=== PATIENT | female | born 1935 | race Caucasian/White ===

== ENCOUNTER 2020-11-22 11:01 | Inpatient (IN) | payer MEDICARE, OTHER ==
[2020-11-22 12:18] LABS: EPI CELLS 6 /uL (0-25.1); HYALINE CASTS 1 /uL (0-3.1); PH,URINE 8.5 (5.0-8.0); URINE APPEARANCE CLEAR; URINE BACTERIA 7 /uL (0-1359); URINE BILIRUBIN NEGATIVE (NEGATIVE); URINE COLOR YELLOW; URINE GLUCOSE (UA) NEGATIVE (NEGATIVE); URINE KETONE NEGATIVE (NEGATIVE); URINE LEUK ESTERASE NEGATIVE (NEGATIVE); URINE NITRITE NEGATIVE (NEGATIVE); URINE PROTEIN 3+ (NEGATIVE); URINE RBC 240 /uL (0-23.9); URINE UROBILINOGEN 0.2 mg/dL (0.2-1.0); URINE WBC 6 /uL (0-25.8)
[2020-11-22 12:31] LABS: MAGNESIUM 1.9 mg/dL (1.8-2.4)
[2020-11-22 12:32] LABS: BLOOD UREA NITROGEN 21.3 mg/dL (7-18); CALCIUM 9.8 mg/dL (8.5-10.1)
[2020-11-22 12:33] LABS: ALBUMIN 3.8 g/dl (3.4-5.0)
[2020-11-22 12:36] LABS: CREATININE 0.5 mg/dL (0.55-1.3)
[2020-11-22 12:37] LABS: BILIRUBIN,TOTAL 0.4 mg/dL (0.2-1); TOT PROT 7.5 g/dl (6.4-8.2)
[2020-11-22 12:40] LABS: N-TERMINAL BNP 3214.9 pg/ml (5-450)
[2020-11-22 12:46] LABS: BASO % 0.7 % (0-2.0); HEMATOCRIT 36.1 % (32.4-45.2); LYMPH % 22.1 % (8-40); MCH 20.8 pg (25.7-33.7); MCHC 30.4 g/dl (32.0-36.0); MEAN CELL VOLUME 68.3 fl (80-96); MEAN PLT VOLUME 9.2 fl (7.5-11.1); MONO % 4.5 % (3.8-10.2); NEUT % 72.7 % (42.8-82.8); PLATELET COUNT 271 10^3/uL (134-434); RBC 5.28 M/mm3 (3.60-5.2); RDW 17.8 % (11.6-15.6)
[2020-11-22] MEDS ORDERED: SODIUM CHLORIDE 0.9% 500 ML INFUS.BAG IV ONE (12:54)
[2020-11-22] MEDS ORDERED: PIPERACILLIN/TAZOB 4.5 GM 4.5 GM in DEXTROSE 5%-WATER 100 ML IVPB ONE (13:03)
[2020-11-22] MEDS ORDERED: PIPERACILLIN/TAZOB 4.5 GM 4.5 GM/100 ML BAG IVPB ONE (13:24)
[2020-11-22 13:30] LABS: ANISOCYTOSIS 1+; MACROCYTOSIS 0; OVALOCYTE 2+; PLATELET ESTIMATE NORMAL; TARGET CELLS 1+; TOXIC GRANULATION 1+
[2020-11-22] MEDS ORDERED: ACETAMINOPHEN 325 MG TABLET (FP) PO PRN ×2 (15:46→17:53)
[2020-11-22] MEDS ORDERED: SODIUM CHLORIDE 1,000 ML IV SCH (16:00)
[2020-11-22] MEDS: PIPERACILLIN/TAZOB 4.5 GM 4.5 GM in DEXTROSE 5%-WATER 100 ML IVPB SCH (17:54)
[2020-11-22] MEDS: INSULIN SLIDING SCALE (NOVOLOG) 1 VIAL SQ SCH ×2 (18:11→22:21)
[2020-11-22] MEDS ORDERED: INSULIN (NOVOLOG) ASPART 100 UNITS/ML 10ML VIAL ONE (21:01)
[2020-11-22] MEDS ORDERED: APIXABAN 5 MG TABLET PO SCH (22:00)
[2020-11-22] MEDS ORDERED: APIXABAN 2.5 MG TABLET PO SCH (22:00)
[2020-11-22 23:12] VITALS: BMI 19.5
[2020-11-23] MEDS ORDERED: PIPERACILLIN/TAZOBACTAM 4.5 GM VIAL IVPB ONE ×2 (01:50→09:37)
[2020-11-23] MEDS ORDERED: DEXTROSE 5%-WATER 100 ML IVPB ONE ×2 (01:50→09:37)
[2020-11-23] MEDS: PIPERACILLIN/TAZOB 4.5 GM 4.5 GM in DEXTROSE 5%-WATER 100 ML IVPB SCH ×3 (01:54→21:12)
[2020-11-23] MEDS ORDERED: ACETAMINOPHEN 325 MG TABLET (FP) PO PRN (04:21)
[2020-11-23] MEDS ORDERED: SODIUM CHLORIDE 1,000 ML IV SCH (04:21)
[2020-11-23] MEDS ORDERED: INSULIN (LEVEMIR) 100 UNITS/ML UNITS SQ SCH (07:00)
[2020-11-23] MEDS: INSULIN (LEVEMIR) 100 UNITS/ML UNITS SQ SCH (07:37)
[2020-11-23] MEDS: INSULIN SLIDING SCALE (NOVOLOG) 1 VIAL SQ SCH ×4 (07:37→23:43)
[2020-11-23] MEDS ORDERED: ENOXAPARIN NA (PORCINE) 40 MG/0.4 ML DISP.SYRIN SQ SCH (10:00)
[2020-11-23] MEDS ORDERED: PIPERACILLIN/TAZOB 4.5 GM 4.5 GM in DEXTROSE 5%-WATER 100 ML IVPB SCH (10:00)
[2020-11-23] MEDS ORDERED: metoPROLOL SUCCINATE 25 MG TAB.SR.24H (FP) PO SCH (10:00)
[2020-11-23] MEDS ORDERED: APIXABAN 2.5 MG TABLET PO SCH (10:00)
[2020-11-23] MEDS: metoPROLOL SUCCINATE 25 MG TAB.SR.24H (FP) PO SCH (10:21)
[2020-11-23 11:12] LABS: BASO % 0.2 % (0-2.0); EOS % 0.2 % (0-4.5); HEMATOCRIT 27.9 % (32.4-45.2); HEMOGLOBIN 8.8 GM/dL (10.7-15.3); LYMPH % 25.1 % (8-40); MCH 21.5 pg (25.7-33.7); MCHC 31.7 g/dl (32.0-36.0); MEAN PLT VOLUME 8.8 fl (7.5-11.1); NEUT % 70.5 % (42.8-82.8); PLATELET COUNT 205 10^3/uL (134-434); RDW 17.8 % (11.6-15.6); WHITE BLOOD COUNT 23.8 K/mm3 (4.0-10.0)
[2020-11-23 11:37] LABS: BLOOD UREA NITROGEN 20.1 mg/dL (7-18); CALCIUM 9.3 mg/dL (8.5-10.1); MAGNESIUM 1.7 mg/dL (1.8-2.4)
[2020-11-23 11:40] LABS: CREATININE 0.8 mg/dL (0.55-1.3)
[2020-11-23 11:41] LABS: PHOSPHOROUS 1.8 mg/dL (2.5-4.9)
[2020-11-23 11:53] LABS: ANISOCYTOSIS 3+; MACROCYTOSIS 0; PLATELET ESTIMATE NORMAL
[2020-11-23] MEDS: PANTOPRAZOLE SODIUM 40 MG VIAL IVPUSH SCH (16:04)
[2020-11-23] MEDS ORDERED: SODIUM CHLORIDE 100 ML IVPB ONE (17:11)
[2020-11-23] MEDS ORDERED: AMPICILLIN NA/SULBACTAM NA 3 GM VIAL ONE (17:11)
[2020-11-23] MEDS: AMPICILLIN NA/SULBACTAM NA 3 GM in SODIUM CHLORIDE 100 ML IVPB SCH (17:40)
[2020-11-24] MEDS ORDERED: AMPICILLIN NA/SULBACTAM NA 3 GM VIAL ONE ×3 (02:24→16:44)
[2020-11-24] MEDS ORDERED: SODIUM CHLORIDE 100 ML IVPB ONE ×3 (02:24→16:44)
[2020-11-24] MEDS: AMPICILLIN NA/SULBACTAM NA 3 GM in SODIUM CHLORIDE 100 ML IVPB SCH ×3 (02:30→17:05)
[2020-11-24] MEDS: INSULIN SLIDING SCALE (NOVOLOG) 1 VIAL SQ SCH ×4 (07:24→21:33)
[2020-11-24] MEDS: INSULIN (LEVEMIR) 100 UNITS/ML UNITS SQ SCH (07:24)
[2020-11-24 07:44] LABS: CALCIUM 8.9 mg/dL (8.5-10.1)
[2020-11-24 07:45] LABS: BLOOD UREA NITROGEN 15.9 mg/dL (7-18)
[2020-11-24 07:46] LABS: BASO % 0.3 % (0-2.0); EOS % 0.6 % (0-4.5); HEMATOCRIT 25.1 % (32.4-45.2); HEMOGLOBIN 7.8 GM/dL (10.7-15.3); MCH 21.2 pg (25.7-33.7); MCHC 31.2 g/dl (32.0-36.0); MEAN PLT VOLUME 9.2 fl (7.5-11.1); MONO % 5.8 % (3.8-10.2); NEUT % 62.3 % (42.8-82.8); PLATELET COUNT 214 10^3/uL (134-434); RBC 3.69 M/mm3 (3.60-5.2); RDW 17.9 % (11.6-15.6); WHITE BLOOD COUNT 21.8 K/mm3 (4.0-10.0)
[2020-11-24 07:48] LABS: CREATININE 0.5 mg/dL (0.55-1.3)
[2020-11-24 07:49] LABS: BILIRUBIN,TOTAL 0.5 mg/dL (0.2-1); TOT PROT 5.7 g/dl (6.4-8.2)
[2020-11-24 08:45] LABS: ALBUMIN 2.6 g/dl (3.4-5.0)
[2020-11-24] MEDS: metoPROLOL SUCCINATE 25 MG TAB.SR.24H (FP) PO SCH (09:16)
[2020-11-24] MEDS: PANTOPRAZOLE SODIUM 40 MG VIAL IVPUSH SCH (09:16)
[2020-11-24 10:31] LABS: PLATELET ESTIMATE ADEQUATE
[2020-11-24] MEDS ORDERED: MAGNESIUM SULFATE IN WATER 2 GM/50 ML IVPB IVPB ONE (15:16)
[2020-11-24] MEDS: NAPH,MB-DB/K PH,MBDB POWDER PACKET PO SCH (21:33)
[2020-11-25] MEDS ORDERED: AMPICILLIN NA/SULBACTAM NA 3 GM VIAL ONE ×3 (01:05→16:48)
[2020-11-25] MEDS ORDERED: SODIUM CHLORIDE 100 ML IVPB ONE ×3 (01:06→16:49)
[2020-11-25] MEDS: AMPICILLIN NA/SULBACTAM NA 3 GM in SODIUM CHLORIDE 100 ML IVPB SCH ×3 (01:11→17:53)
[2020-11-25] MEDS: NAPH,MB-DB/K PH,MBDB POWDER PACKET PO SCH ×3 (06:02→21:11)
[2020-11-25] MEDS: INSULIN (LEVEMIR) 100 UNITS/ML UNITS SQ SCH (06:11)
[2020-11-25] MEDS: INSULIN SLIDING SCALE (NOVOLOG) 1 VIAL SQ SCH ×4 (06:12→21:02)
[2020-11-25] MEDS: metoPROLOL SUCCINATE 25 MG TAB.SR.24H (FP) PO SCH (09:23)
[2020-11-25 09:26] LABS: BASO % 0.2 % (0-2.0); HEMOGLOBIN 8.1 GM/dL (10.7-15.3); LYMPH % 24.8 % (8-40); MCHC 31.2 g/dl (32.0-36.0); MEAN CELL VOLUME 67.3 fl (80-96); MEAN PLT VOLUME 8.9 fl (7.5-11.1); MONO % 5.6 % (3.8-10.2); NEUT % 68.4 % (42.8-82.8); PLATELET COUNT 226 10^3/uL (134-434); RBC 3.86 M/mm3 (3.60-5.2); RDW 17.6 % (11.6-15.6); WHITE BLOOD COUNT 21.1 K/mm3 (4.0-10.0)
[2020-11-25 09:38] LABS: ALBUMIN 2.5 g/dl (3.4-5.0); CALCIUM 8.5 mg/dL (8.5-10.1)
[2020-11-25 09:39] LABS: BLOOD UREA NITROGEN 16.6 mg/dL (7-18)
[2020-11-25 09:42] LABS: CREATININE 0.7 mg/dL (0.55-1.3)
[2020-11-25 09:43] LABS: BILIRUBIN,TOTAL 0.7 mg/dL (0.2-1)
[2020-11-25 10:08] LABS: ANISOCYTOSIS 2+; MACROCYTOSIS 0; PLATELET ESTIMATE NORMAL
[2020-11-25 12:20] LABS: PH,URINE 8.5 (5.0-8.0); URINE APPEARANCE Clear; URINE BILIRUBIN Negative (NEGATIVE); URINE COLOR Yellow; URINE GLUCOSE (UA) Trace (NEGATIVE); URINE KETONE Negative (NEGATIVE); URINE LEUK ESTERASE Negative (NEGATIVE); URINE NITRITE Negative (NEGATIVE); URINE PROTEIN 2+ (NEGATIVE); URINE UROBILINOGEN 0.2 mg/dL (0.2-1.0)
[2020-11-25] MEDS: APIXABAN 5 MG TABLET PO SCH (21:11)
[2020-11-26] MEDS ORDERED: AMPICILLIN NA/SULBACTAM NA 3 GM VIAL ONE ×3 (01:03→17:46)
[2020-11-26] MEDS ORDERED: SODIUM CHLORIDE 100 ML IVPB ONE ×3 (01:03→17:46)
[2020-11-26] MEDS: AMPICILLIN NA/SULBACTAM NA 3 GM in SODIUM CHLORIDE 100 ML IVPB SCH ×3 (01:36→18:19)
[2020-11-26] MEDS: NAPH,MB-DB/K PH,MBDB POWDER PACKET PO SCH ×2 (06:11→15:51)
[2020-11-26] MEDS: INSULIN (LEVEMIR) 100 UNITS/ML UNITS SQ SCH (06:12)
[2020-11-26] MEDS: INSULIN SLIDING SCALE (NOVOLOG) 1 VIAL SQ SCH ×4 (06:13→21:52)
[2020-11-26 07:27] LABS: HEMATOCRIT 26.5 % (32.4-45.2); HEMOGLOBIN 8.5 GM/dL (10.7-15.3); MCH 21.4 pg (25.7-33.7); MCHC 31.9 g/dl (32.0-36.0); MEAN PLT VOLUME 8.5 fl (7.5-11.1); PLATELET COUNT 264 10^3/uL (134-434); RBC 3.96 M/mm3 (3.60-5.2); RDW 17.5 % (11.6-15.6); WHITE BLOOD COUNT 20.7 K/mm3 (4.0-10.0)
[2020-11-26 07:57] LABS: ALBUMIN 2.5 g/dl (3.4-5.0); BLOOD UREA NITROGEN 15.9 mg/dL (7-18); CALCIUM 8.5 mg/dL (8.5-10.1); MAGNESIUM 1.9 mg/dL (1.8-2.4)
[2020-11-26 08:00] LABS: PHOSPHOROUS 4.4 mg/dL (2.5-4.9)
[2020-11-26 08:01] LABS: BILIRUBIN,TOTAL 1.1 mg/dL (0.2-1); TOT PROT 6.3 g/dl (6.4-8.2)
[2020-11-26 08:03] LABS: CREATININE 0.4 mg/dL (0.55-1.3)
[2020-11-26] MEDS ORDERED: IRON SUCROSE INJECTION 200 MG in SODIUM CHLORIDE 90 ML IVPB ONE (10:00)
[2020-11-26] MEDS: metoPROLOL SUCCINATE 25 MG TAB.SR.24H (FP) PO SCH (10:33)
[2020-11-26] MEDS: PANTOPRAZOLE 40 MG TABLET PO SCH (10:33)
[2020-11-26] MEDS ORDERED: INSULIN (NOVOLOG) ASPART 100 UNITS/ML 10ML VIAL ONE (18:27)
[2020-11-26] MEDS: POLYETHYLENE GLYCOL (HEALTHYLAX) 3350 17 GM PACKET PO SCH (21:52)
[2020-11-27] MEDS ORDERED: SODIUM CHLORIDE 100 ML IVPB ONE ×3 (00:15→16:19)
[2020-11-27] MEDS ORDERED: AMPICILLIN NA/SULBACTAM NA 3 GM VIAL ONE ×3 (00:15→16:19)
[2020-11-27] MEDS: AMPICILLIN NA/SULBACTAM NA 3 GM in SODIUM CHLORIDE 100 ML IVPB SCH ×3 (01:14→17:03)
[2020-11-27] MEDS: INSULIN SLIDING SCALE (NOVOLOG) 1 VIAL SQ SCH ×4 (06:00→21:18)
[2020-11-27] MEDS: INSULIN (LEVEMIR) 100 UNITS/ML UNITS SQ SCH (06:29)
[2020-11-27] MEDS: POLYETHYLENE GLYCOL (HEALTHYLAX) 3350 17 GM PACKET PO SCH ×4 (06:43→21:08)
[2020-11-27 07:31] LABS: BASO % 0.3 % (0-2.0); EOS % 2.4 % (0-4.5); HEMATOCRIT 25.6 % (32.4-45.2); HEMOGLOBIN 8.2 GM/dL (10.7-15.3); LYMPH % 41.1 % (8-40); MCH 21.2 pg (25.7-33.7); MCHC 31.8 g/dl (32.0-36.0); MEAN CELL VOLUME 66.7 fl (80-96); MEAN PLT VOLUME 8.3 fl (7.5-11.1); MONO % 8.2 % (3.8-10.2); PLATELET COUNT 249 10^3/uL (134-434); RBC 3.84 M/mm3 (3.60-5.2); RDW 17.5 % (11.6-15.6); WHITE BLOOD COUNT 22.7 K/mm3 (4.0-10.0)
[2020-11-27 08:00] LABS: ALBUMIN 2.3 g/dl (3.4-5.0); BLOOD UREA NITROGEN 14.7 mg/dL (7-18); CALCIUM 8.4 mg/dL (8.5-10.1); MAGNESIUM 1.9 mg/dL (1.8-2.4)
[2020-11-27 08:03] LABS: CREATININE 0.4 mg/dL (0.55-1.3); PHOSPHOROUS 5.4 mg/dL (2.5-4.9)
[2020-11-27 08:04] LABS: BILIRUBIN,TOTAL 0.4 mg/dL (0.2-1); TOT PROT 5.8 g/dl (6.4-8.2)
[2020-11-27] MEDS ORDERED: PT OWN MED DRAWER 7, Y5N ONE ×3 (08:49→10:46)
[2020-11-27 09:30] LABS: HELMET CELLS 0; HOWELL-JOLLY BODIES 0; MACROCYTOSIS 0; OVALOCYTE 0; PLATELET ESTIMATE NORMAL; SICKELED CELLS 0; TARGET CELLS 0; TEAR DROP CELLS 0; TOXIC GRANULATION 0
[2020-11-27 09:38] LABS: ANISOCYTOSIS 3+; ROULEAU 2+
[2020-11-27] MEDS: PANTOPRAZOLE 40 MG TABLET PO SCH (10:31)
[2020-11-27] MEDS: dilTIAZem HCL 30 MG TABLET PO SCH ×4 (10:35→23:31)
[2020-11-27] MEDS: METOPROLOL TARTRATE 25 MG TABLET (FP) PO SCH ×2 (10:35→21:06)
[2020-11-27] MEDS: metoPROLOL SUCCINATE 25 MG TAB.SR.24H (FP) PO SCH (11:25)
[2020-11-27] MEDS: IRON SUCROSE INJECTION 200 MG in SODIUM CHLORIDE 90 ML IVPB SCH (11:27)
[2020-11-27] MEDS ORDERED: dilTIAZem HCL 30 MG TABLET PO SCH (12:00)
[2020-11-27] MEDS: LOSARTAN POTASSIUM 25 MG TABLET PO SCH (13:20)
[2020-11-27] MEDS: APIXABAN 5 MG TABLET PO SCH ×2 (14:57→21:05)
[2020-11-27] MEDS ORDERED: INSULIN (NOVOLOG) ASPART 100 UNITS/ML 10ML VIAL ONE (16:42)
[2020-11-28] MEDS ORDERED: AMPICILLIN NA/SULBACTAM NA 3 GM VIAL ONE ×3 (02:54→17:14)
[2020-11-28] MEDS: AMPICILLIN NA/SULBACTAM NA 3 GM in SODIUM CHLORIDE 100 ML IVPB SCH ×3 (03:14→18:11)
[2020-11-28] MEDS: dilTIAZem HCL 30 MG TABLET PO SCH ×3 (06:38→18:11)
[2020-11-28] MEDS: POLYETHYLENE GLYCOL (HEALTHYLAX) 3350 17 GM PACKET PO SCH ×3 (06:39→21:16)
[2020-11-28] MEDS: INSULIN SLIDING SCALE (NOVOLOG) 1 VIAL SQ SCH ×4 (06:40→21:27)
[2020-11-28] MEDS: INSULIN (LEVEMIR) 100 UNITS/ML UNITS SQ SCH (06:57)
[2020-11-28 07:27] LABS: BASO % 0.3 % (0-2.0); EOS % 2.5 % (0-4.5); HEMATOCRIT 23.9 % (32.4-45.2); HEMOGLOBIN 7.6 GM/dL (10.7-15.3); LYMPH % 38.3 % (8-40); MCH 21.3 pg (25.7-33.7); MCHC 31.9 g/dl (32.0-36.0); MEAN CELL VOLUME 66.8 fl (80-96); MEAN PLT VOLUME 8.2 fl (7.5-11.1); MONO % 7.4 % (3.8-10.2); NEUT % 51.5 % (42.8-82.8); PLATELET COUNT 296 10^3/uL (134-434); RBC 3.58 M/mm3 (3.60-5.2); RDW 17.1 % (11.6-15.6); WHITE BLOOD COUNT 25.1 K/mm3 (4.0-10.0)
[2020-11-28 07:46] LABS: CALCIUM 8.8 mg/dL (8.5-10.1)
[2020-11-28 07:47] LABS: ALBUMIN 2.4 g/dl (3.4-5.0); BLOOD UREA NITROGEN 17.9 mg/dL (7-18); MAGNESIUM 2.1 mg/dL (1.8-2.4)
[2020-11-28 07:50] LABS: CREATININE 0.4 mg/dL (0.55-1.3); PHOSPHOROUS 5.3 mg/dL (2.5-4.9)
[2020-11-28 07:52] LABS: BILIRUBIN,TOTAL 0.3 mg/dL (0.2-1); TOT PROT 6.2 g/dl (6.4-8.2)
[2020-11-28] MEDS ORDERED: SODIUM CHLORIDE 100 ML IVPB ONE ×2 (09:25→17:14)
[2020-11-28 09:46] LABS: ANISOCYTOSIS 2+; MACROCYTOSIS 1+; PLATELET ESTIMATE NORMAL; ROULEAU 1+
[2020-11-28] MEDS: METOPROLOL TARTRATE 25 MG TABLET (FP) PO SCH ×2 (10:27→21:16)
[2020-11-28] MEDS: LOSARTAN POTASSIUM 25 MG TABLET PO SCH (10:28)
[2020-11-28] MEDS: PANTOPRAZOLE 40 MG TABLET PO SCH (10:28)
[2020-11-28] MEDS: APIXABAN 5 MG TABLET PO SCH ×2 (10:28→21:16)
[2020-11-28] MEDS: IRON SUCROSE INJECTION 200 MG in SODIUM CHLORIDE 90 ML IVPB SCH (10:29)
[2020-11-29] MEDS ORDERED: AMPICILLIN NA/SULBACTAM NA 3 GM VIAL ONE ×2 (02:48→09:40)
[2020-11-29] MEDS ORDERED: SODIUM CHLORIDE 100 ML IVPB ONE ×2 (02:48→09:40)
[2020-11-29] MEDS: AMPICILLIN NA/SULBACTAM NA 3 GM in SODIUM CHLORIDE 100 ML IVPB SCH ×2 (02:56→09:50)
[2020-11-29] MEDS: dilTIAZem HCL 30 MG TABLET PO SCH ×3 (02:58→13:59)
[2020-11-29] MEDS: INSULIN SLIDING SCALE (NOVOLOG) 1 VIAL SQ SCH ×2 (06:22→11:39)
[2020-11-29] MEDS: POLYETHYLENE GLYCOL (HEALTHYLAX) 3350 17 GM PACKET PO SCH ×2 (06:55→13:59)
[2020-11-29] MEDS: INSULIN (LEVEMIR) 100 UNITS/ML UNITS SQ SCH (06:55)
[2020-11-29 08:09] LABS: BASO % 0.6 % (0-2.0); HEMATOCRIT 32.8 % (32.4-45.2); HEMOGLOBIN 10.2 GM/dL (10.7-15.3); LYMPH % 39.4 % (8-40); MCH 22.1 pg (25.7-33.7); MCHC 30.9 g/dl (32.0-36.0); MEAN CELL VOLUME 71.5 fl (80-96); MEAN PLT VOLUME 8.5 fl (7.5-11.1); MONO % 5.7 % (3.8-10.2); NEUT % 51.3 % (42.8-82.8); PLATELET COUNT 324 10^3/uL (134-434); RBC 4.59 M/mm3 (3.60-5.2); RDW 20.5 % (11.6-15.6); WHITE BLOOD COUNT 26.5 K/mm3 (4.0-10.0)
[2020-11-29 08:38] LABS: ALBUMIN 2.6 g/dl (3.4-5.0); CALCIUM 9.2 mg/dL (8.5-10.1)
[2020-11-29 08:39] LABS: MAGNESIUM 2.1 mg/dL (1.8-2.4)
[2020-11-29 08:42] LABS: CREATININE 0.6 mg/dL (0.55-1.3); PHOSPHOROUS 5.7 mg/dL (2.5-4.9)
[2020-11-29 08:43] LABS: BILIRUBIN,TOTAL 0.5 mg/dL (0.2-1); TOT PROT 6.4 g/dl (6.4-8.2)
[2020-11-29] MEDS: METOPROLOL TARTRATE 25 MG TABLET (FP) PO SCH (09:50)
[2020-11-29] MEDS: APIXABAN 5 MG TABLET PO SCH (09:50)
[2020-11-29] MEDS: PANTOPRAZOLE 40 MG TABLET PO SCH (09:51)
[2020-11-29] MEDS: LOSARTAN POTASSIUM 25 MG TABLET PO SCH (09:51)
[2020-11-29] MEDS ORDERED: INSULIN (NOVOLOG) ASPART 100 UNITS/ML 10ML VIAL ONE (11:37)
[2020-11-29 15:13] VITALS: BP 130/65; PULSE 87; TEMP 97.6
== END 2020-11-29 15:57 | disposition home or self-care (01) | DRG 871 ==
LOC: JER 11:01 → JERBED 13:54 → J6S 18:35 → J4W 11-23 05:30
PROVIDERS: ADMIT Student in an Organized Health Care Education/Training Program; ATTEND Internal Medicine
PROC: 30233N1 Transfusion of Nonautologous Red Blood Cells into Peripheral Vein, Percutaneous Approach (ICD-10-PCS; principal; 2020-11-28)
DX: A41.9 Sepsis, unspecified organism (principal); J69.0 Pneumonitis due to inhalation of food and vomit; I21.4 Non-ST elevation (NSTEMI) myocardial infarction; J96.01 Acute respiratory failure with hypoxia; I24.8 Other forms of acute ischemic heart disease; I48.19 Other persistent atrial fibrillation; E87.1 Hypo-osmolality and hyponatremia; R65.20 Severe sepsis without septic shock; D50.9 Iron deficiency anemia, unspecified; K59.00 Constipation, unspecified; D50.0 Iron deficiency anemia secondary to blood loss (chronic); G30.9 Alzheimer's disease, unspecified; F02.80 Dementia in other diseases classified elsewhere, unspecified severity, without behavioral disturbance, psychotic disturbance, mood disturbance, and anxiety; E11.9 Type 2 diabetes mellitus without complications; I25.10 Atherosclerotic heart disease of native coronary artery without angina pectoris; R31.9 Hematuria, unspecified; D72.829 Elevated white blood cell count, unspecified
CPT/HCPCS: 36415; 36430; 36511; 71045-TC-FY; 80048; 80053; 81003; 82272; 82550; 82570; 82728; 82962; 83540; 83550; 83735; 83880; 84100; 84156; 84300; 84484; 85025; 85027; 86738; 86850; 86900; 86901; 86922; 87040; 87899; 93005; 93010; 93306-TC; 94761; 97161-GP; 99285-25; C9803; J1756; P9038; P9058; U0003; U0005

== ENCOUNTER 2021-06-10 19:43 | Inpatient (IN) | payer MEDICARE, OTHER ==
[2021-06-10] MEDS ORDERED: SODIUM CHLORIDE 0.9% 500 ML INFUS.BAG IV ONE ×2 (20:31→23:52)
[2021-06-10 22:24] LABS: BASO % 0.9 % (0-2.0); HEMATOCRIT 33.1 % (32.4-45.2); HEMOGLOBIN 10.7 GM/dL (10.7-15.3); LYMPH % 29.5 % (8-40); MCH 23.9 pg (25.7-33.7); MCHC 32.5 g/dl (32.0-36.0); MEAN CELL VOLUME 73.5 fl (80-96); MONO % 6.8 % (3.8-10.2); NEUT % 62.8 % (42.8-82.8); RDW 14.9 % (11.6-15.6); WHITE BLOOD COUNT 17.7 K/mm3 (4.0-10.0)
[2021-06-10 22:29] LABS: BLOOD UREA NITROGEN 34.9 mg/dL (7-18); CALCIUM 9.9 mg/dL (8.5-10.1); MAGNESIUM 1.8 mg/dL (1.8-2.4)
[2021-06-10 22:31] LABS: PHOSPHOROUS 3.1 mg/dL (2.5-4.9)
[2021-06-10 22:32] LABS: CREATININE 0.9 mg/dL (0.55-1.3)
[2021-06-10 22:34] LABS: BILIRUBIN,TOTAL 0.4 mg/dL (0.2-1); TOT PROT 7.4 g/dl (6.4-8.2)
[2021-06-10 22:40] LABS: LACTIC ACID 3.9 mmol/L (0.4-2.0)
[2021-06-10] MEDS ORDERED: PIPERACILLIN/TAZOB 4.5 GM 4.5 GM in DEXTROSE 5%-WATER 100 ML IVPB ONE (22:46)
[2021-06-10 22:54] LABS: MEAN PLT VOLUME 9.3 fl (7.5-11.1); PLATELET COUNT 194 10^3/uL (134-434)
[2021-06-10 23:02] LABS: INR 1.79 (0.83-1.09); PROTHROMBIN TIME (PATIENT) 20.7 SEC (9.7-13.0)
[2021-06-10 23:05] LABS: ACTIVATED PTT 35.3 SECONDS (25.2-36.5)
[2021-06-10] MEDS ORDERED: PIPERACILLIN/TAZOB 4.5 GM 4.5 GM/100 ML BAG IVPB ONE (23:05)
[2021-06-10 23:29] LABS: EPI CELLS 32 /uL (0-25.1); HYALINE CASTS 37 /uL (0-3.1); PH,URINE 7.5 (5.0-8.0); URINE APPEARANCE TURBID; URINE BACTERIA >9,000 /uL (0-1359); URINE BILIRUBIN NEGATIVE (NEGATIVE); URINE COLOR DK YELLOW; URINE GLUCOSE (UA) NEGATIVE (NEGATIVE); URINE KETONE TRACE (NEGATIVE); URINE LEUK ESTERASE 3+ (NEGATIVE); URINE NITRITE NEGATIVE (NEGATIVE); URINE PROTEIN 3+ (NEGATIVE); URINE WBC 20374 /uL (0-25.8)
[2021-06-10] MEDS ORDERED: ACETAMINOPHEN 1000 MG/100 ML BAG IVPB ONE (23:54)
[2021-06-11] MEDS ORDERED: ACETAMINOPHEN INJECTION 100 ML IVPB ONE (00:04)
[2021-06-11 01:28] LABS: URINE RBC 1305 /uL (0-23.9)
[2021-06-11 01:29] LABS: YEAST NONE SEEN (NEGATIVE)
[2021-06-11 02:52] LABS: LACTIC ACID 2.6 mmol/L (0.4-2.0)
[2021-06-11] MEDS ORDERED: SODIUM CHLORIDE 1,000 ML IV SCH (04:00)
[2021-06-11] MEDS ORDERED: dilTIAZem HCL 30 MG TABLET ONE (05:21)
[2021-06-11] MEDS: dilTIAZem HCL 30 MG TABLET PO SCH ×3 (05:59→18:20)
[2021-06-11] MEDS: INSULIN SLIDING SCALE (NOVOLOG) 1 VIAL SQ SCH ×3 (07:00→17:34)
[2021-06-11 07:12] LABS: HEMATOCRIT 33.5 % (32.4-45.2); HEMOGLOBIN 10.3 GM/dL (10.7-15.3); MCH 23.1 pg (25.7-33.7); MCHC 30.7 g/dl (32.0-36.0); MEAN CELL VOLUME 75.1 fl (80-96); MEAN PLT VOLUME 9.3 fl (7.5-11.1); PLATELET COUNT 149 10^3/uL (134-434); RBC 4.46 M/mm3 (3.60-5.2); RDW 14.9 % (11.6-15.6); WHITE BLOOD COUNT 11.7 K/mm3 (4.0-10.0)
[2021-06-11 07:41] LABS: ALBUMIN 2.7 g/dl (3.4-5.0); CALCIUM 8.9 mg/dL (8.5-10.1)
[2021-06-11 07:42] LABS: BLOOD UREA NITROGEN 30.1 mg/dL (7-18); MAGNESIUM 1.7 mg/dL (1.8-2.4)
[2021-06-11 07:44] LABS: CREATININE 0.6 mg/dL (0.55-1.3)
[2021-06-11 07:45] LABS: CHOLESTEROL 105 mg/dL (50-200); PHOSPHOROUS 3.1 mg/dL (2.5-4.9); TOT PROT 6.4 g/dl (6.4-8.2); TRIGLYCERIDES 202 mg/dL (0-150)
[2021-06-11 07:46] LABS: BILIRUBIN,TOTAL 0.3 mg/dL (0.2-1); HDL CHOLESTEROL 27 mg/dL (40-60)
[2021-06-11 07:48] LABS: LDL CHOLESTEROL (ONLY SJRH) 48 mg/dL (5-100)
[2021-06-11] MEDS ORDERED: INSULIN (LEVEMIR) 100 UNITS/ML UNITS SQ SCH (10:00)
[2021-06-11] MEDS ORDERED: AZITHROMYCIN IVPB 500 MG/250 ML BAG IVPB SCH (10:00)
[2021-06-11] MEDS ORDERED: METOPROLOL TARTRATE 25 MG TABLET (FP) ONE (10:30)
[2021-06-11] MEDS ORDERED: APIXABAN 5 MG TABLET ONE (10:30)
[2021-06-11] MEDS ORDERED: PANTOPRAZOLE 40 MG TABLET ONE (10:30)
[2021-06-11] MEDS ORDERED: CEFTRIAXONE 1 GM/50 ML BAG ONE (10:31)
[2021-06-11] MEDS: APIXABAN 5 MG TABLET PO SCH ×2 (10:52→22:13)
[2021-06-11] MEDS: METOPROLOL TARTRATE 25 MG TABLET (FP) PO SCH ×2 (10:52→22:13)
[2021-06-11] MEDS: LOSARTAN POTASSIUM 25 MG TABLET PO SCH (10:52)
[2021-06-11] MEDS: CEFTRIAXONE 1 GM in DEXTROSE 5%-WATER - 50 ML IVPB SCH (10:52)
[2021-06-11] MEDS: PANTOPRAZOLE 40 MG TABLET PO SCH (10:52)
[2021-06-11] MEDS ORDERED: AZITHROMYCIN IVPB 500 MG/250 ML BAG IVPB ONE (11:10)
[2021-06-11 14:17] VITALS: BMI 19.5
[2021-06-11] MEDS ORDERED: REMDESIVIR 200 MG in SODIUM CHLORIDE 250 ML IVPB ONE (16:15)
[2021-06-12] MEDS: dilTIAZem HCL 30 MG TABLET PO SCH ×4 (00:48→17:20)
[2021-06-12] MEDS: INSULIN SLIDING SCALE (NOVOLOG) 1 VIAL SQ SCH ×3 (06:05→17:35)
[2021-06-12] MEDS ORDERED: cefTRIAXone SODIUM 1 GM VIAL ONE (09:18)
[2021-06-12] MEDS ORDERED: DEXTROSE 5%-WATER - 50 ML IVPB ONE (09:18)
[2021-06-12] MEDS: APIXABAN 5 MG TABLET PO SCH ×2 (09:55→22:43)
[2021-06-12] MEDS: METOPROLOL TARTRATE 25 MG TABLET (FP) PO SCH ×2 (09:55→22:43)
[2021-06-12] MEDS: LOSARTAN POTASSIUM 25 MG TABLET PO SCH (09:56)
[2021-06-12] MEDS: CEFTRIAXONE 1 GM in DEXTROSE 5%-WATER - 50 ML IVPB SCH (09:56)
[2021-06-12] MEDS: PANTOPRAZOLE 40 MG TABLET PO SCH (09:56)
[2021-06-12] MEDS ORDERED: CEFEPIME HCL 1 GM VIAL (RESTRICTED TO ID) ONE (17:18)
[2021-06-12] MEDS ORDERED: DEXTROSE 5%-WATER 100 ML IVPB ONE (17:18)
[2021-06-12] MEDS: CEFEPIME 1 GM in DEXTROSE 5%-WATER 1 GM/100 ML BAG IVPB SCH (17:20)
[2021-06-12] MEDS: ACETAMINOPHEN 325 MG TABLET (FP) PO PRN (21:00)
[2021-06-13] MEDS ORDERED: DEXTROSE 5%-WATER 100 ML IVPB ONE ×3 (01:01→16:50)
[2021-06-13] MEDS ORDERED: CEFEPIME HCL 1 GM VIAL (RESTRICTED TO ID) ONE ×3 (01:01→16:50)
[2021-06-13] MEDS: CEFEPIME 1 GM in DEXTROSE 5%-WATER 1 GM/100 ML BAG IVPB SCH ×3 (01:49→18:44)
[2021-06-13] MEDS: dilTIAZem HCL 30 MG TABLET PO SCH ×4 (05:15→18:44)
[2021-06-13] MEDS: INSULIN SLIDING SCALE (NOVOLOG) 1 VIAL SQ SCH ×3 (07:06→17:08)
[2021-06-13 09:51] LABS: BASO % 0.1 % (0-2.0); EOS % 0.7 % (0-4.5); HEMATOCRIT 32.8 % (32.4-45.2); HEMOGLOBIN 10.3 GM/dL (10.7-15.3); LYMPH % 46.8 % (8-40); MCH 23.1 pg (25.7-33.7); MCHC 31.4 g/dl (32.0-36.0); MEAN CELL VOLUME 73.5 fl (80-96); MEAN PLT VOLUME 9.1 fl (7.5-11.1); MONO % 5.9 % (3.8-10.2); NEUT % 46.5 % (42.8-82.8); PLATELET COUNT 187 10^3/uL (134-434); RBC 4.46 M/mm3 (3.60-5.2); RDW 14.5 % (11.6-15.6); WHITE BLOOD COUNT 12.1 K/mm3 (4.0-10.0)
[2021-06-13] MEDS: LOSARTAN POTASSIUM 25 MG TABLET PO SCH (09:59)
[2021-06-13] MEDS: APIXABAN 5 MG TABLET PO SCH (09:59)
[2021-06-13] MEDS: PANTOPRAZOLE 40 MG TABLET PO SCH (09:59)
[2021-06-13] MEDS: METOPROLOL TARTRATE 25 MG TABLET (FP) PO SCH ×2 (10:00→21:15)
[2021-06-13 10:18] LABS: CALCIUM 8.3 mg/dL (8.5-10.1)
[2021-06-13 10:19] LABS: ALBUMIN 2.5 g/dl (3.4-5.0); BLOOD UREA NITROGEN 18.9 mg/dL (7-18); MAGNESIUM 1.8 mg/dL (1.8-2.4)
[2021-06-13 10:22] LABS: CREATININE 0.5 mg/dL (0.55-1.3)
[2021-06-13 10:24] LABS: BILIRUBIN,TOTAL 0.3 mg/dL (0.2-1); TOT PROT 6.2 g/dl (6.4-8.2)
[2021-06-13] MEDS: REMDESIVIR 100 MG in SODIUM CHLORIDE 250 ML IVPB SCH (17:03)
[2021-06-13] MEDS: KCL 10 MEQ IVPB 10 MEQ/100 ML INFUS.BAG IVPB SCH ×2 (21:15→22:12)
[2021-06-13] MEDS: APIXABAN 2.5 MG TABLET PO SCH (21:15)
[2021-06-14] MEDS: dilTIAZem HCL 30 MG TABLET PO SCH ×4 (00:58→17:34)
[2021-06-14] MEDS ORDERED: DEXTROSE 5%-WATER 100 ML IVPB ONE ×3 (02:53→17:05)
[2021-06-14] MEDS ORDERED: CEFEPIME HCL 1 GM VIAL (RESTRICTED TO ID) ONE ×3 (02:53→17:04)
[2021-06-14] MEDS: CEFEPIME 1 GM in DEXTROSE 5%-WATER 1 GM/100 ML BAG IVPB SCH ×3 (02:57→17:34)
[2021-06-14] MEDS: ACETAMINOPHEN 325 MG TABLET (FP) PO PRN (02:59)
[2021-06-14] MEDS: INSULIN SLIDING SCALE (NOVOLOG) 1 VIAL SQ SCH ×3 (06:18→17:34)
[2021-06-14] MEDS: PANTOPRAZOLE 40 MG TABLET PO SCH (10:51)
[2021-06-14] MEDS: LOSARTAN POTASSIUM 25 MG TABLET PO SCH (10:51)
[2021-06-14] MEDS: APIXABAN 2.5 MG TABLET PO SCH ×2 (10:51→22:06)
[2021-06-14] MEDS: METHIMAZOLE 5 MG TABLET PO SCH (10:51)
[2021-06-14] MEDS: METOPROLOL TARTRATE 25 MG TABLET (FP) PO SCH ×2 (10:51→22:06)
[2021-06-14 12:53] LABS: BASO % 0.2 % (0-2.0); HEMATOCRIT 31.4 % (32.4-45.2); HEMOGLOBIN 10.1 GM/dL (10.7-15.3); LYMPH % 39.7 % (8-40); MCH 23.6 pg (25.7-33.7); MCHC 32.2 g/dl (32.0-36.0); MEAN CELL VOLUME 73.4 fl (80-96); MEAN PLT VOLUME 9.2 fl (7.5-11.1); MONO % 6.2 % (3.8-10.2); NEUT % 52.9 % (42.8-82.8); PLATELET COUNT 207 10^3/uL (134-434); RBC 4.29 M/mm3 (3.60-5.2); RDW 14.8 % (11.6-15.6); WHITE BLOOD COUNT 13.3 K/mm3 (4.0-10.0)
[2021-06-14 13:17] LABS: CALCIUM 8.2 mg/dL (8.5-10.1)
[2021-06-14 13:18] LABS: ALBUMIN 2.4 g/dl (3.4-5.0); BLOOD UREA NITROGEN 17.7 mg/dL (7-18); MAGNESIUM 1.8 mg/dL (1.8-2.4)
[2021-06-14 13:19] LABS: CREATININE 0.5 mg/dL (0.55-1.3)
[2021-06-14 13:21] LABS: BILIRUBIN,TOTAL 0.4 mg/dL (0.2-1); TOT PROT 6.2 g/dl (6.4-8.2)
[2021-06-14] MEDS: REMDESIVIR 100 MG in SODIUM CHLORIDE 250 ML IVPB SCH (17:34)
[2021-06-15] MEDS: dilTIAZem HCL 30 MG TABLET PO SCH ×4 (00:56→17:22)
[2021-06-15] MEDS ORDERED: CEFEPIME HCL 1 GM VIAL (RESTRICTED TO ID) ONE ×3 (01:02→17:19)
[2021-06-15] MEDS ORDERED: DEXTROSE 5%-WATER 100 ML IVPB ONE ×3 (01:02→17:19)
[2021-06-15] MEDS: CEFEPIME 1 GM in DEXTROSE 5%-WATER 1 GM/100 ML BAG IVPB SCH ×3 (02:05→17:22)
[2021-06-15] MEDS: INSULIN SLIDING SCALE (NOVOLOG) 1 VIAL SQ SCH ×3 (06:16→17:05)
[2021-06-15] MEDS ORDERED: INSULIN (NOVOLOG) ASPART 100 UNITS/ML 10ML VIAL ONE (06:58)
[2021-06-15 08:52] LABS: BASO % 0.2 % (0-2.0); EOS % 1.4 % (0-4.5); HEMATOCRIT 33.1 % (32.4-45.2); HEMOGLOBIN 10.4 GM/dL (10.7-15.3); LYMPH % 35.3 % (8-40); MCHC 31.3 g/dl (32.0-36.0); MEAN CELL VOLUME 73.5 fl (80-96); MEAN PLT VOLUME 9.2 fl (7.5-11.1); MONO % 6.1 % (3.8-10.2); PLATELET COUNT 264 10^3/uL (134-434); RDW 14.6 % (11.6-15.6); WHITE BLOOD COUNT 15.6 K/mm3 (4.0-10.0)
[2021-06-15 09:13] LABS: CALCIUM 8.7 mg/dL (8.5-10.1)
[2021-06-15 09:14] LABS: ALBUMIN 2.5 g/dl (3.4-5.0); MAGNESIUM 1.9 mg/dL (1.8-2.4)
[2021-06-15 09:17] LABS: CREATININE 0.5 mg/dL (0.55-1.3)
[2021-06-15 09:19] LABS: BILIRUBIN,TOTAL 0.4 mg/dL (0.2-1); TOT PROT 6.6 g/dl (6.4-8.2)
[2021-06-15] MEDS: METOPROLOL TARTRATE 25 MG TABLET (FP) PO SCH ×2 (09:25→21:37)
[2021-06-15] MEDS: PANTOPRAZOLE 40 MG TABLET PO SCH (09:26)
[2021-06-15] MEDS: METHIMAZOLE 5 MG TABLET PO SCH (09:26)
[2021-06-15] MEDS: APIXABAN 2.5 MG TABLET PO SCH ×2 (09:26→21:37)
[2021-06-15] MEDS: LOSARTAN POTASSIUM 25 MG TABLET PO SCH (09:29)
[2021-06-16] MEDS: dilTIAZem HCL 30 MG TABLET PO SCH ×4 (00:59→17:44)
[2021-06-16] MEDS ORDERED: CEFEPIME HCL 1 GM VIAL (RESTRICTED TO ID) ONE ×3 (01:03→17:49)
[2021-06-16] MEDS ORDERED: DEXTROSE 5%-WATER 100 ML IVPB ONE ×3 (01:04→17:49)
[2021-06-16] MEDS: CEFEPIME 1 GM in DEXTROSE 5%-WATER 1 GM/100 ML BAG IVPB SCH ×3 (01:10→18:43)
[2021-06-16] MEDS: INSULIN SLIDING SCALE (NOVOLOG) 1 VIAL SQ SCH ×3 (06:08→17:41)
[2021-06-16] MEDS ORDERED: INSULIN (NOVOLOG) ASPART 100 UNITS/ML 10ML VIAL ONE (08:35)
[2021-06-16] MEDS: APIXABAN 2.5 MG TABLET PO SCH ×2 (11:25→21:59)
[2021-06-16] MEDS: METHIMAZOLE 5 MG TABLET PO SCH (11:25)
[2021-06-16] MEDS: METOPROLOL TARTRATE 25 MG TABLET (FP) PO SCH ×2 (11:25→21:59)
[2021-06-16] MEDS: LOSARTAN POTASSIUM 25 MG TABLET PO SCH (11:25)
[2021-06-16] MEDS: PANTOPRAZOLE 40 MG TABLET PO SCH (11:25)
[2021-06-16 13:38] LABS: BASO % 0.2 % (0-2.0); EOS % 1.5 % (0-4.5); HEMATOCRIT 32.2 % (32.4-45.2); HEMOGLOBIN 10.1 GM/dL (10.7-15.3); MCH 23.2 pg (25.7-33.7); MCHC 31.4 g/dl (32.0-36.0); MEAN CELL VOLUME 73.9 fl (80-96); MEAN PLT VOLUME 9.1 fl (7.5-11.1); MONO % 5.2 % (3.8-10.2); NEUT % 61.1 % (42.8-82.8); PLATELET COUNT 294 10^3/uL (134-434); RBC 4.36 M/mm3 (3.60-5.2); RDW 14.9 % (11.6-15.6); WHITE BLOOD COUNT 13.3 K/mm3 (4.0-10.0)
[2021-06-16 13:57] LABS: ALBUMIN 2.4 g/dl (3.4-5.0); BLOOD UREA NITROGEN 15.6 mg/dL (7-18); CALCIUM 8.5 mg/dL (8.5-10.1)
[2021-06-16 13:58] LABS: MAGNESIUM 1.8 mg/dL (1.8-2.4)
[2021-06-16 14:00] LABS: CREATININE 0.6 mg/dL (0.55-1.3)
[2021-06-16 14:02] LABS: BILIRUBIN,TOTAL 0.5 mg/dL (0.2-1); TOT PROT 6.4 g/dl (6.4-8.2)
[2021-06-16] MEDS: KCL 10 MEQ IVPB 10 MEQ/100 ML INFUS.BAG IVPB SCH ×2 (17:38→20:59)
[2021-06-16] MEDS: AMINO ACIDS/PROTEIN HYDROLYS 30 ML LIQUID.PKT PO SCH (17:43)
[2021-06-16] MEDS: ACETAMINOPHEN 325 MG TABLET (FP) PO PRN (22:00)
[2021-06-17] MEDS ORDERED: DEXTROSE 5%-WATER 100 ML IVPB ONE (01:08)
[2021-06-17] MEDS ORDERED: CEFEPIME HCL 1 GM VIAL (RESTRICTED TO ID) ONE (01:08)
[2021-06-17] MEDS: CEFEPIME 1 GM in DEXTROSE 5%-WATER 1 GM/100 ML BAG IVPB SCH (01:13)
[2021-06-17] MEDS: dilTIAZem HCL 30 MG TABLET PO SCH ×2 (01:13→06:16)
[2021-06-17] MEDS: INSULIN SLIDING SCALE (NOVOLOG) 1 VIAL SQ SCH (06:16)
[2021-06-17 06:22] VITALS: BP 134/67; PULSE 72; TEMP 97.6
[2021-06-17] MEDS ORDERED: POTASSIUM CHLORIDE ORAL LIQUID 20 MEQ/15 ML PO ONE ×2 (09:21→09:55)
[2021-06-17] MEDS: PANTOPRAZOLE 40 MG TABLET PO SCH (09:58)
[2021-06-17] MEDS: APIXABAN 2.5 MG TABLET PO SCH (09:58)
[2021-06-17] MEDS: METOPROLOL TARTRATE 25 MG TABLET (FP) PO SCH (09:58)
[2021-06-17] MEDS: METHIMAZOLE 5 MG TABLET PO SCH (09:59)
[2021-06-17] MEDS: AMINO ACIDS/PROTEIN HYDROLYS 30 ML LIQUID.PKT PO SCH (09:59)
[2021-06-17] MEDS ORDERED: AMOX TR/POT CLAV 500MG/125MG TABLETS (FP) PO SCH (10:00)
[2021-06-17] MEDS: LOSARTAN POTASSIUM 25 MG TABLET PO SCH (10:00)
== END 2021-06-17 14:06 | disposition home or self-care (01) | DRG 871 ==
LOC: JER 19:43 → JERBED 22:47 → J8W 06-11 11:48
PROVIDERS: ADMIT Internal Medicine; ATTEND Nurse Practitioner Acute Care
PROC: XW033E5 Introduction of Remdesivir Anti-infective into Peripheral Vein, Percutaneous Approach, New Technology Group 5 (ICD-10-PCS; principal; 2021-06-11)
DX: A41.89 Other specified sepsis (principal); U07.1 COVID-19; J12.82 Pneumonia due to coronavirus disease 2019; E87.2 Acidosis; N39.0 Urinary tract infection, site not specified; I24.8 Other forms of acute ischemic heart disease; I48.19 Other persistent atrial fibrillation; G30.9 Alzheimer's disease, unspecified; F02.80 Dementia in other diseases classified elsewhere, unspecified severity, without behavioral disturbance, psychotic disturbance, mood disturbance, and anxiety; I10 Essential (primary) hypertension; E11.9 Type 2 diabetes mellitus without complications; D64.9 Anemia, unspecified; B96.20 Unspecified Escherichia coli [E. coli] as the cause of diseases classified elsewhere; B96.4 Proteus (mirabilis) (morganii) as the cause of diseases classified elsewhere; E04.1 Nontoxic single thyroid nodule; R77.8 Other specified abnormalities of plasma proteins; K59.00 Constipation, unspecified; E78.1 Pure hyperglyceridemia; E04.9 Nontoxic goiter, unspecified; D72.829 Elevated white blood cell count, unspecified; D50.9 Iron deficiency anemia, unspecified; Z95.0 Presence of cardiac pacemaker
CPT/HCPCS: 36415; 71045-TC-FY; 71250-TC; 80053; 80061; 81003; 82728; 82962; 83036; 83605; 83735; 84100; 84439; 84443; 84445; 84481; 84484; 85025; 85027; 85379; 85610; 85730; 86140; 87040; 87086; 87186; 87804; 93005; 93010; 94761; 99285-25; C9399; C9803; J0131; U0003; U0005